=== PATIENT | female | born 1995 | race Asian ===

== ENCOUNTER 2016-05-13 22:22 | Emergency (ER) | payer OTHER ==
[~2016-05-13] VITALS: Ht 162.6 cm; Wt 69.0 kg
[~2016-05-13 22:22] MED LIST: AMO500 PO; CETI10CA PO; GUAI118L94 PO; IBUP-1542 PO; LISD10CA PO
[2016-05-13 22:37] VITALS: Ht 162.6 cm; Wt 69.0 kg
[2016-05-13] MEDS ORDERED: ACETAMINOPHEN 500 MG TAB PO STA (23:46)
[2016-05-14] MEDS ORDERED: DEXAMETHASONE 10 MG/ML 1 ML INJ PO ONE
[2016-05-14] MEDS ORDERED: PENICILLIN G BENZ 1.2 MIL UNIT SYG IM ONE
[2016-05-14] MEDS ORDERED: HYDR-906 PO (00:32)
--- NOTE | 2016-05-14 00:58 | ERD ---
ER Documentation Chief Complaint Date/Time DATE: 05/14/16 TIME: 00:56 Chief Complaint SORE THROAT X 3 DAYS HPI This is a 20-year-old female presents to the ER with a sore throat for the last 3 days. Patient has past medical history of recurrent tonsillitis. Patient has had a headache, body aches fevers and chills. She denies a cough. She denies any difficulty in swallowing. ROS 12 point review of systems was done, all negative except per HPI. Medications Home Meds Active Scripts Hydrocodone/Acetaminophen ([place] 5-325 Tablet) 1 Each Tablet, 1 TAB PO Q6H Y for PAIN, #10 TAB Prov:DON SOTELO 05/14/16 Ibuprofen* (Ibuprofen*) 600 Mg Tablet, 600 MG PO Q6H Y for PAIN, #20 TAB Prov:MAGGEI YOUSSEF MD 10/29/15 Amoxicillin* (Amoxicillin*) 500 Mg Cap, 500 MG PO TID for TONSILLITIS for 10 Days, CAP Prov:MAGGIE YOUSSEF MD 10/29/15 Cetirizine Hcl* (Zyrtec*) 10 Mg Capsule, 10 MG PO DAILY, #30 TAB.CHEW Prov:WALLACE ANGELES HUMAN SERVICE TECHNICIAN 09/20/15 Guaifenesin-Codeine Phosphate* (Guaifenesin* with Codeine Liq) 120 Ml Liquid, 5 ML PO Q4H for COUGH, #60 ML Prov:WALLACE ANGELES HUMAN SERVICE TECHNICIAN 09/20/15 Reported Medications Ibuprofen* (Ibuprofen*) 600 Mg Tablet, 600 MG PO Q8, TAB 10/29/15 Lisdexamfetamine Dimesylate (Vyvanse) 10 Mg Capsule, 10 PO DAILY, #30 CAP 09/20/15 Allergies Allergies: Coded Allergies: No Known Allergy (Unverified , 05/13/16) PMhx/Soc Medical and Surgical Hx: pt denies Medical Hx, pt denies Surgical Hx History of Surgery: No Anesthesia Reaction: No Hx Neurological Disorder: No Hx Respiratory Disorders: Yes (asthma) Hx Cardiac Disorders: No Hx Psychiatric Problems: Yes (ADHD, PTSD) Hx Miscellaneous Medical Probl: No Hx Alcohol Use: No Hx Substance Use: No Hx Tobacco Use: No Smoking Status: Never smoker Physical Exam Vitals Vital Signs Date Time Temp Pulse Resp B/P Pulse Ox O2 Delivery O2 Flow Rate FiO2 05/13/16 22:37 98.0 96 20 121/58 100 Physical Exam GENERAL: The patient is well-developed, well-nourished, in no acute distress. HEENT: Atraumatic. Pupils equal, round and reactive to light. Extraocular muscles are grossly intact. Conjunctivae pink, no discharge. Bilateral tympanic membranes are clear with no evidence of erythema, effusion or dulling of the light reflex. Bilateral tonsillar exudate no uvular deviation no kissing tonsils RESPIRATORY: Clear to auscultation bilaterally. There are no rales, wheezes or rhonchi. HEART: Regular rate and rhythm. No murmurs, clicks, rubs or gallops. EXTREMITIES: No clubbing or cyanosis. Full range of motion. Grossly neurovascularly intact. NEUROLOGIC: Alert and oriented. Cranial nerves II through XII are intact. SKIN: There is no rash. The skin is warm and dry. Results 24 hrs Current Medications Medications (Trade) Dose Ordered Sig/Arline Route PRN Reason Start Time Stop Time Status Last Admin Dose Admin Penicillin G Benzathine (Bicillin La) 1,200,000 units ONCE ONCE IM 05/14/16 00:00 05/14/16 00:01 DC 05/14/16 00:13 Dexamethasone (Decadron) 10 mg ONCE ONCE PO 05/14/16 00:00 05/14/16 00:01 DC 05/14/16 00:13 Acetaminophen (Tylenol Tab) 1,000 mg ONCE STAT PO 05/13/16 23:46 05/13/16 23:48 DC 05/14/16 00:13 Procedures/MDM This is a 20-year-old female presents to the ER wit a sore throat. This is likely strep throat. Suspicion for peritonsillar or retropharyngeal abscess is low. She does not have any uvular deviation, kissing tonsils or muffled voice. Patient was treated in the ER with penicillin IM. She does not have any complications. She was also given some steroids. Patient will be sent home with [place]. She is to follow-up with her primary care doctor within 1-2 days or return to the ER sooner if symptoms worsen. Plan was discussed with the patient she understands and agrees with plan. Departure Diagnosis: Primary Impression: Strep throat Condition: Stable Patient Instructions: Strep Throat Additional Instructions: Call your primary care doctor TOMORROW for an appointment during the next 1-2 days.See the doctor sooner or return here if your condition worsens before your appointment time. DON SOTELO May 14, 2016 00:58
== END 2016-05-14 00:58 | disposition home or self-care (01) ==
LOC: FTE 22:22
DX: J02.0 Streptococcal pharyngitis (principal); J45.909 Unspecified asthma, uncomplicated
CPT/HCPCS: 96372; J0561; J1100; Z7502; Z7610